=== PATIENT | female | born 1925 | race Caucasian/White ===

== ENCOUNTER 2016-10-03 09:15 | Emergency (ER) | payer MEDICARE, OTHER ==
[2016-10-03 09:47] VITALS: BP 177/86
[2016-10-03] MEDS ORDERED: METHYLPREDNISOLONE SOD SUCC/PF 125 MG/2 ML VIAL IM ONE (10:25)
[2016-10-03] MEDS ORDERED: diphenhydrAMINE HCL 50 MG/ML VIAL IM ONE (10:25)
[2016-10-03] MEDS ORDERED: METHYLPREDNISOLONE SOD SUCC/PF 125 MG/2 ML VIAL ONE (10:35)
[2016-10-03] MEDS ORDERED: diphenhydrAMINE HCL 50 MG/ML VIAL ONE (10:35)
--- NOTE | 2016-10-03 10:35 | ERNOTE ---
Medical Problem HPI - Narrative Date of Service: 10/03/16 - General Chief Complaint: General Assessment Time Seen by Provider: 10/03/16 10:12 Source: patient, family, RN notes reviewed Exam Limitations: dementia - Immun/Allergies/Home Medications Immunizations: IMMUNIZATION HX Immunizations Up to Date Yes History of Influenza Vaccine More Information Required Hx Pneumococcal Vaccination More Information Required Allergies/Adverse Reactions: Allergies No Known Allergies Allergy (Verified 07/04/14 20:20) Home Medications: HOME MEDICATIONS Clopidogrel Bisulfate [Plavix] 75 mg PO DAILY 11/14/15 [Last Taken 10/03/16 08: 00] Cyanocobalamin [Vitamin B-12] 1,000 mcg PO DAILY 11/14/15 [Last Taken 10/02/16 17:00] Donepezil HCl [Aricept] 5 mg PO DAILY 11/14/15 [Last Taken 10/03/16 08:00] Losartan Potassium [Cozaar] 100 mg PO DAILY 11/14/15 [Last Taken 10/03/16 100mg] Metoprolol Tartrate [Lopressor] 50 mg PO DAILY 11/14/15 [Last Taken 10/02/16 17: 00] Mirtazapine [Remeron] 30 mg PO HS 11/14/15 [Last Taken Unknown] Nitroglycerin [Nitrostat] 0.4 mg SL Q5MIN PRN 11/14/15 [Last Taken Unknown] Levothyroxine Sodium [Levoxyl] 50 mcg PO 10/03/16 [Last Taken 10/03/16 08:00] risperiDONE [Risperdal] 0.5 mg PO DAILY 10/03/16 [Last Taken 10/02/16 20:00] - History of Present History Narrative: 89 y/o female brought to the ED from the [place] by her family for facial swelling that was first noticed this morning. They report that she had a medication adjustment approximately 2 weeks ago. She is being tapered off Aricept and her Risperdal dose was increased, but she is not on any new medications. They are not aware of any exposure to new foods, detergents or hygiene products. The patient denies any swelling in her mouth or throat. She denies any pain aside from low back pain that is chronic. Date (Duration): 10/03/16 Review of Systems - Review of Systems Constitutional: Present: fatigue, decreased activity level. Absent: recent illness, fever EYE: Absent: eye pain, eye discharge, tearing ENT: Absent: nose congestion, nasal drainage, sore throat, throat swelling Respiratory: Absent: shortness of breath, cough, wheezing, stridor Cardiology: Absent: chest pain, syncope Gastrointestinal/Abdominal: Present: eating less, drinking less. Absent: vomiting, diarrhea Genitourinary: Present: no symptoms reported Musculoskeletal: Present: back pain. Absent: joint pain Skin: Absent: rash, lesions, change in color Neurological: Absent: headache, seizure Endocrine: Present: no symptoms reported Hematologic/Lymphatic: Present: no symptoms reported Psych: Present: other - dementia, agression - Patient's Past Medical History Patient History - Medical: Alzheimer's Disease, Dementia, Hypothyroidism Patient History - Cardiac/Respiratory: Angina, Arrhythmias, COPD, CVA/Stroke, Hypertension, Hyperlipidemia, TIA, Other Patient History - Cancer: No Hx of Cancer Patient History - Surgical Procedures: Appendectomy, Colonoscopy, Other Patient History - Other: None LMP (females 10-50): Menopausal - Family History Mother Family History - Medical: Family History - Cardiac/Respiratory: CVA/Stroke Father Family History - Medical: Sister Family History - Medical: - Social History Living Situations: assisted living Abuse History: No History of abuse Psych History: No pertinent hx Smoking Status: Never smoker Have you smoked in the past 12 months: No Do you dip or chew tobacco: No Alcohol Use: none Drug Use: none - Immunizations Immunizations Up to Date: Yes Hx Pneumococcal Vaccination: More Information Required to Determine History of Influenza Vaccine: More Information Required to Determine Physical Exam - Physical Exam General Appearance: Present: wd/wn, alert, no apparent distress Head Exam: Present: no evidence of injury, swelling - inferior periorbital region bilaterally, upper lip. Absent: tenderness Eye Exam: Normal inspection: bilateral, PERRL: bilateral Ears, Nose, Throat: Present: normal except - - upper lip edematous. Absent: pharyngeal swelling, dry mucous membranes Neck: Present: normal inspection, nontender, supple Respiratory: Present: no respiratory distress, normal breath sounds, no accessory muscle use, lungs clear Cardiovascular/Chest: Present: regular rate, rhythm, no murmur, normal peripheral pulses Extremity Exam: Present: normal inspection Neurological Exam: Present: alert, other - flat affect. Absent: oriented, normal mood/affect Skin Exam: Present: normal color, warm/dry ED Progress - Vital Signs Patient's Vital Signs:: I have reviewed the patient's vital signs. Vital Signs: Vital Signs 10/03/16 09:34 Temperature 36 C L Pulse Rate 66 Respiratory 18 Rate Blood Pressure 177/86 O2 Sat by Pulse 99 Oximetry - Progress/Reassessment Chief Complaint: General Assessment Progress:: Unchanged Plan - Plan Plan: SoluMedrol IM and po Benadryl given. Will d/c back to [place] with order to give Benadryl 25 mg po prn for facial edema. Family aware of possible side effects of drowsiness and dizziness. They report that she sleeps most of the time already and does not ambulate without assistance. Departure - Departure Clinical Impression: Angioedema Qualifiers: Encounter type: initial encounter Qualified Code(s): T78.3XXA - Angioneurotic edema, initial encounter Disposition: [place] self-care Condition: Stable Instructions: Angioedema, [id number] Additional Instructions: Continue routine medications Benadryl 25 mg by mouth every 6 hours as needed for ongoing facial edema - Will cause drowsiness and increase fall risk Return to ER if symptoms worsen Referrals: Levon Thorne MD [Primary Care Provider] -
== END 2016-10-03 10:54 | disposition home or self-care (01) ==
LOC: ER 09:15
DX: G30.9 Alzheimer's disease, unspecified (principal); F02.80 Dementia in other diseases classified elsewhere, unspecified severity, without behavioral disturbance, psychotic disturbance, mood disturbance, and anxiety; E03.9 Hypothyroidism, unspecified; J44.9 Chronic obstructive pulmonary disease, unspecified; I10 Essential (primary) hypertension; E78.5 Hyperlipidemia, unspecified; Z86.73 Personal history of transient ischemic attack (TIA), and cerebral infarction without residual deficits

== ENCOUNTER 2016-10-13 08:30 | Emergency (ER) | payer MEDICARE, OTHER ==
[2016-10-13 08:45] VITALS: BP 165/71
--- NOTE | 2016-10-13 09:05 | ERNOTE ---
Trauma/Assault HPI - Narrative Date of Service: 10/13/16 - General Stated Complaint: FALL Time Seen by Provider: 10/13/16 08:51 Source: patient, family Exam Limitations: dementia - Immun/Allergies/Home Medications Immunizations: IMMUNIZATION HX Immunizations Up to Date Yes History of Influenza Vaccine Yes Hx Pneumococcal Vaccination Yes Allergies/Adverse Reactions: Allergies No Known Allergies Allergy (Verified 10/13/16 08:45) Home Medications: HOME MEDICATIONS Clopidogrel Bisulfate [Plavix] 75 mg PO DAILY 11/14/15 [Last Taken 10/03/16 08: 00] Cyanocobalamin [Vitamin B-12] 1,000 mcg PO DAILY 11/14/15 [Last Taken 10/02/16 17:00] Donepezil HCl [Aricept] 5 mg PO DAILY 11/14/15 [Last Taken 10/03/16 08:00] Losartan Potassium [Cozaar] 100 mg PO DAILY 11/14/15 [Last Taken 10/03/16 100mg] Metoprolol Tartrate [Lopressor] 50 mg PO DAILY 11/14/15 [Last Taken 10/02/16 17: 00] Mirtazapine [Remeron] 30 mg PO HS 11/14/15 [Last Taken Unknown] Nitroglycerin [Nitrostat] 0.4 mg SL Q5MIN PRN 11/14/15 [Last Taken Unknown] Levothyroxine Sodium [Levoxyl] 50 mcg PO 10/03/16 [Last Taken 10/03/16 08:00] risperiDONE [Risperdal] 0.5 mg PO DAILY 10/03/16 [Last Taken 10/02/16 20:00] Acetaminophen [Extra Strength Non-Aspirin] 500 mg PO TID 10/13/16 [Last Taken Unknown] Tobramycin/Dexamethasone [Tobradex Eye Drops] 5 ml OP QID #5 drops.susp [Last Taken Unknown] - History of Present Illness Location Occurred: Reports: other - [facility] Pain Location: Reports: face Method of Injury: Reports: fall Severity: mild Modifying Factors - (Improves): Reports: other - nothing Modifying Factors - (Worsens): Reports: other - nothing Loss of Consciousness: Reports: no loss of consciousness, remembers the event Associated Symptoms - Trauma: Reports: denies symptoms Review of Systems - Review of Systems Constitutional: Present: fatigue, malaise EYE: Present: other - gavi orbital ecchymosis ENT: Present: no symptoms reported Respiratory: Present: no symptoms reported Cardiology: Present: no symptoms reported Gastrointestinal/Abdominal: Present: no symptoms reported Genitourinary: Present: no symptoms reported Musculoskeletal: Present: no symptoms reported Skin: Present: no symptoms reported Neurological: Present: no symptoms reported Endocrine: Present: no symptoms reported Hematologic/Lymphatic: Present: no symptoms reported Psych: Present: no symptoms reported All Other Systems: All systems neg except as marked - Patient's Past Medical History Patient History - Medical: Alzheimer's Disease, Dementia, Hypothyroidism Patient History - Cardiac/Respiratory: Angina, Arrhythmias, COPD, CVA/Stroke, Hypertension, Hyperlipidemia, TIA, Other Patient History - Cancer: No Hx of Cancer Patient History - Surgical Procedures: Appendectomy, Colonoscopy, Other Patient History - Other: None - Family History Family History:: no untoward family reactions to anesthesia, no familial bleeding tendencies - Family History Mother Family History - Medical: Family History - Cardiac/Respiratory: CVA/Stroke Father Family History - Medical: Sister Family History - Medical: Family History - Cardiac/Respiratory: No pertinent hx Family History - Cancer: No pertinent family hx - Social History Living Situations: [facility] Abuse History: No History of abuse Psych History: No pertinent hx Smoking Status: Smoker, status unknown Have you smoked in the past 12 months: No Do you dip or chew tobacco: No Alcohol Use: none Drug Use: none - Immunizations Immunizations Up to Date: Yes Hx Pneumococcal Vaccination: Yes History of Influenza Vaccine: Yes Physical Exam - Physical Exam General Appearance: Present: alert, mild distress, attentive for age Head Exam: Present: ecchymosis - peeriorbital ecchymosis Eye Exam: Normal inspection: left - periorbital ecchymosis, PERRL: left, EOMI: left, Conjunctivae pale: left - injected with purulent drainage Ears, Nose, Throat: Present: normal ENT inspection, nasal congestion Neck: Present: normal inspection, nontender Respiratory: Present: no respiratory distress, normal breath sounds, no accessory muscle use, chest nontender, lungs clear Cardiovascular/Chest: Present: regular rate, rhythm, no murmur, normal peripheral pulses Peripheral Pulses: N=norm/S=strong/W=weak/B=bound/A=absent: Carotid (R): Normal , Carotid (L): Normal, Radial (R): Normal, Radial (L): Normal, Femoral (R): Normal, Femoral (L): Normal, Dorsalis-pedis (R): Normal, Dorsalis-pedis (L): Normal Gastrointestinal/Abdominal: Present: normal bowel sounds, nontender, nondistended, soft, no organomegaly Back Exam: Present: normal inspection, normal range of motion, no CVA tenderness , no vertebral tenderness Extremity Exam: Present: normal inspection, non-tender, normal range of motion, no edema Neurological Exam: Present: alert, oriented, normal mood/affect, no motor/ sensory deficits DTR: N=norm/NB=norm/brisk/A=abs/DD=dull/dimin/HC=hyperactive: Bicep (R): Normal , Bicep (L): Normal, Tricep (R): Normal, Tricep (L): Normal, Knee (R): Normal, Knee (L): Normal, Ankle (R): Normal, Ankle (L): Normal ED Progress - Vital Signs Patient's Vital Signs:: I have reviewed the patient's vital signs. Vital Signs: Vital Signs 10/13/16 08:38 Temperature 36.8 C Pulse Rate 77 Respiratory 14 Rate Blood Pressure 165/71 O2 Sat by Pulse 98 Oximetry - Progress/Reassessment Chief Complaint: Fall Progress:: Unchanged Progress Note-Subjective: 10/13/16 09:00 discussed care with family, they request no ct or evaluation otheer than treatment for eye injury Departure Clinical Impression: Contusion, Conjunctivitis - Departure Disposition: [place] self-care Condition: Fair Instructions: Bacterial Conjunctivitis, [id number], Contusion, [id number] Prescriptions: Tobramycin/Dexamethasone [Tobradex Eye Drops] 5 ml OP QID #5 drops.susp
== END 2016-10-13 09:12 | disposition home or self-care (01) ==
LOC: ER 08:30
DX: S00.83XA Contusion of other part of head, initial encounter (principal); W06.XXXA Fall from bed, initial encounter; Z91.81 History of falling; Y93.9 Activity, unspecified; Y92.122 Bedroom in nursing home as the place of occurrence of the external cause; H10.9 Unspecified conjunctivitis

== ENCOUNTER 2016-11-08 09:16 | Emergency (ER) | payer MEDICARE, OTHER ==
[2016-11-08 09:17] VITALS: BP 165/71
--- NOTE | 2016-11-08 09:35 | ERNOTE ---
Allergy Symptoms - ER Presenting Symptoms: face swelling Time Seen by Provider: 11/08/16 09:20 Source: family Exam Limitations: dementia Immunizations: IMMUNIZATION HX Immunizations Up to Date Yes History of Influenza Vaccine Yes Hx Pneumococcal Vaccination Yes Allergies/Adverse Reactions: Allergies No Known Allergies Allergy (Verified 10/13/16 08:45) Home Medications: HOME MEDICATIONS Clopidogrel Bisulfate [Plavix] 75 mg PO DAILY 11/14/15 [Last Taken 10/03/16 08: 00] Cyanocobalamin [Vitamin B-12] 1,000 mcg PO DAILY 11/14/15 [Last Taken 10/02/16 17:00] Donepezil HCl [Aricept] 5 mg PO DAILY 11/14/15 [Last Taken 10/03/16 08:00] Losartan Potassium [Cozaar] 100 mg PO DAILY 11/14/15 [Last Taken 10/03/16 100mg] Metoprolol Tartrate [Lopressor] 50 mg PO DAILY 11/14/15 [Last Taken 10/02/16 17: 00] Mirtazapine [Remeron] 30 mg PO HS 11/14/15 [Last Taken Unknown] Nitroglycerin [Nitrostat] 0.4 mg SL Q5MIN PRN 11/14/15 [Last Taken Unknown] Levothyroxine Sodium [Levoxyl] 50 mcg PO DAILY 10/03/16 [Last Taken 10/03/16 08: 00] risperiDONE [Risperdal] 0.75 mg PO DAILY 10/03/16 [Last Taken 10/02/16 20:00] Acetaminophen [Extra Strength Non-Aspirin] 500 mg PO TID 10/13/16 [Last Taken Unknown] Amoxicillin Trihydrate [Amoxil] 500 mg PO TID #30 cap 11/08/16 [Last Taken Unknown] Menthol [Biofreeze] 1 appl TP Q4H PRN 11/08/16 [Last Taken Unknown] - History of Present Illness Narrative: According to her sons patient started to have some lip swelling yesterday and received benadryl. The patient has dementia and is unable to give a history, she lives at the [facility]. Apparently today the swelling got worse, no other symptoms reported. Date (Duration): 11/07/16 Location skin rash/itching: Present: facial Location swelling: Present: face, lip(s) Severity shortness of breath: Absent: mild Severity trouble swallowing/speaking: Absent: mild Identified cause?: No Exposure: Present: none. Absent: antibiotic Modifying Factors (Improves): Reports: medications - benadryl Prior Treament: Reports: similar symptoms before - month ago Review of Systems - Narrative Narrative: unable to obtain details due to dementia - Patient's Past Medical History Patient History - Medical: Alzheimer's Disease, Dementia, Hypothyroidism Patient History - Cardiac/Respiratory: Angina, Arrhythmias, COPD, CVA/Stroke, Hypertension, Hyperlipidemia, TIA, Other Patient History - Cancer: No Hx of Cancer Patient History - Surgical Procedures: Appendectomy, Colonoscopy, Other Patient History - Other: None - Family History Mother Family History - Medical: Family History - Cardiac/Respiratory: CVA/Stroke Father Family History - Medical: Sister Family History - Medical: Family History - Cardiac/Respiratory: No pertinent hx Family History - Cancer: No pertinent family hx - Social History Living Situations: [facility] Abuse History: No History of abuse Psych History: No pertinent hx Smoking Status: Never smoker Alcohol Use: none Drug Use: none - Immunizations Immunizations Up to Date: Yes Hx Pneumococcal Vaccination: Yes History of Influenza Vaccine: Yes Physical Exam - Physical Exam General Appearance: Present: wd/wn, alert, no apparent distress Head Exam: Present: normal inspection, no evidence of injury Eye Exam: Normal inspection: bilateral - except small amount of drainage at corner of right eye, PERRL: bilateral Ears, Nose, Throat: Present: other - mild swelling right upper lip and right midface, large amount of phlegm/purulent discharge in whole mouth, able to wipe it off, no obvious thrush Neck: Present: normal inspection, nontender Respiratory: Present: no respiratory distress, normal breath sounds, no accessory muscle use, lungs clear Cardiovascular/Chest: Present: regular rate, rhythm, no murmur Neurological Exam: Present: alert, other - talks very little (normal per sons) Skin Exam: Present: normal color, warm/dry. Absent: skin rash ED Progress - Vital Signs Patient's Vital Signs:: I have reviewed the patient's vital signs. Vital Signs: Vital Signs 11/08/16 09:20 Temperature 35.8 C L Pulse Rate 73 Respiratory 16 Rate O2 Sat by Pulse 98 Oximetry - Progress/Reassessment Progress Note-Subjective: 11/08/16 09:40 discussed with nurse from [facility], patient had facial swelling month ago treated with benadryl, started to have facial swelling yesterday am, better with benadryl, worse again this morning, also noticed a lot of mucus in her mouth. discussed with son's possible sinus infection, recommended antibiotics, offered CT, sons decided to wait on CT 11/08/16 09:55 discussed with gabriela Santana to start amoxicillin Departure Clinical Impression: Sinusitis, acute Qualifiers: Sinusitis location: unspecified location Recurrence: not specified as recurrent Qualified Code(s): J01.90 - Acute sinusitis, unspecified - Departure Disposition: [facility] self-care Condition: Stable Instructions: Sinusitis, Adult, [id number] Referrals: Levon Thorne MD [Primary Care Provider] - Prescriptions: Amoxicillin Trihydrate [Amoxil] 500 mg PO TID #30 cap
== END 2016-11-08 09:59 | disposition home or self-care (01) ==
LOC: ER 09:16
DX: J01.90 Acute sinusitis, unspecified (principal); G30.9 Alzheimer's disease, unspecified; F02.80 Dementia in other diseases classified elsewhere, unspecified severity, without behavioral disturbance, psychotic disturbance, mood disturbance, and anxiety; E03.9 Hypothyroidism, unspecified; I10 Essential (primary) hypertension; I20.9 Angina pectoris, unspecified; Z86.73 Personal history of transient ischemic attack (TIA), and cerebral infarction without residual deficits